=== PATIENT | female | born 1975 | race Two or more races ===

== ENCOUNTER 2017-06-28 02:53 | Inpatient (IN) ==
[2017-06-28 04:55] LABS: Apearance,Urine Slightly Hazy (Clear); Bacteria,Urine Occasional /HPF (Few); Bilirubin,Urine Negative (Negative); Blood, Urine Small mg/dL (Negative); Glucose,Urine (UA) Negative (Negative); Ketones,Urine Negative (Negative); Nitrite,Urine Negative (Negative); Protein,Urine Negative; RBC,Urine 16 /HPF (0-4); Squamous Epithelial Cell,Urine Occasional /HPF (0-10); Urine Color Straw (Yellow); Urine Specific Gravity 1.001 (1.001-1.035); Urine Urobilinogen < 2.0 EU/DL (0.2-1.0); WBC,Urine 15 /HPF (0-6)
[2017-06-28] MEDS ORDERED: LACTATED RINGERS 1,000 ML IV ONE (05:04)
[2017-06-28] MEDS ORDERED: FAMOTIDINE 20 MG/2 ML VIAL IV ONE (06:44)
[2017-06-28] MEDS ORDERED: CITRIC ACID/SODIUM CITRATE 30 ML UDCUP PO ONE (06:44)
[2017-06-28] MEDS ORDERED: LACTATED RINGERS 1,000 ML IV SCH ×3 (07:00→12:33)
[2017-06-28] MEDS ORDERED: OXYTOCIN/LR 20 UNIT/1,000 ML BAG IV ONE ×2 (07:09→12:33)
[2017-06-28 07:15] LABS: Basophils % 0.3 % (0.0-0.8); Eosinophils % 0.2 % (0.00-10.9); Hematocrit 36.6 VOL% (35.7-47.0); Hemoglobin 12.8 GM/DL (12.0-16.0); Immature Granulocytes % 0.7 %; Immature Granulocytes Absolute 0.06 #; Lymphocytes # 2.7 10*3/uL (1.4-4.0); Lymphocytes % 29.6 % (21.3-54.2); Mean Corpuscular Hemoglobin 31 PG (27-34); Mean Corpuscular Volume 88.8 FL (87-102); Mean Platelet Volume 10.3 FL (9.6-12.0); Monocytes # 0.4 10*3/uL (0.11-0.8); Monocytes % 4.5 % (1.7-12.7); Neutrophils # 5.8 10*3/uL (1.4-7.4); Neutrophils % 64.7 % (38.7-73.9); Platelet Count 311 T/CUMM (130-400); Red Blood Count 4.12 MC/CUMM (3.8-5.5); Red Cell Distribution Width 13.9 % (9.3-17.3)
[2017-06-28 07:29] LABS: Apearance,Urine CLEAR (Clear); Bacteria,Urine Occasional /HPF (Few); Bilirubin,Urine Negative (Negative); Blood, Urine Small mg/dL (Negative); Glucose,Urine (UA) Negative (Negative); Ketones,Urine Negative (Negative); Nitrite,Urine Negative (Negative); Protein,Urine Negative; RBC,Urine <1 /HPF (0-4); Squamous Epithelial Cell,Urine Occasional /HPF (0-10); Urine Color Straw (Yellow); Urine Specific Gravity 1.002 (1.001-1.035); Urine Urobilinogen < 2.0 EU/DL (0.2-1.0)
[2017-06-28] MEDS ORDERED: PHENYLEPHRINE 1 MG/10 ML SYRINGE IV ONE (07:36)
[2017-06-28] MEDS ORDERED: ONDANSETRON 4 MG/2 ML VIAL ONE (07:36)
--- NOTE | 2017-06-28 07:40 | OB/GYN History & Physical ---
History of Present Illness Chief complaint: Contractions History of present illness: Ms. Karen Millan is a 41 year old female Multiparous who presented this morning with contractions and cervical change. She was scheduled to come in this Saturday for her 4th section without tubal. ( plans IUD in the office). GDM, diet control (actually suspect Type 2 DM). Obesity. R/B/A to surgery reviewed. Pt verbalized understanding and is willing to proceed. Home Medications Medication Instructions Recorded Confirmed Type Vits #93/Iron Fum/FA 1 each PO DAILY MDD one tab 02/21/16 06/28/17 History [ Formula Tablet] Folic Acid Tab 1 mg PO DAILY 03/14/16 06/28/17 History Allergies Allergy/AdvReac Type Severity Reaction Status Date / Time No Known Allergies Allergy Verified 05/22/17 15:54 Medical,Surgical,& Family Hx - Medical History Neurology: No history of: Seizures Endocrine: No history of: Diabetes Mellitus (NIDDM) (Gestational DM) Reproductive: No history of: Ectopic , Complication (Ms. 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 - Constitutional Vitals: Vital Signs Temp Pulse Resp BP Pulse Ox 06/28/17 07:00 115 H 20 144/87 06/28/17 06:40 97.8 F 90 20 142/76 98 General appearance: mild distress, over weight - Head Head exam: Present: normal inspection, normocephalic - Eye Eye exam: Present: EOMI Pupils: Present: CANDI - Respiratory Respiratory exam: Present: clear to auscultation bilaterally - Cardiovascular Cardiovascular exam: Present: regular rate and rhythm - GI/Abdominal GI/Abdominal exam: Present: soft, other (regular contractions) Assessment and Plan (1) 38 weeks gestation of Status: Acute Current Visit: Yes (2) H/O section Status: Acute Assessment and plan: Currently in labor Plan repeat section Current Visit: Yes Results - Labs CBC & BMP: 06/28/17 07:10
[2017-06-28 07:49] LABS: Alanine Aminotransferase 19 U/L (13-56); Albumin 2.2 G/DL (3.4-5.0); Alkaline Phosphatase 188 U/L (45-117); Aspartate Amino Transferase 23 U/L (0-37); Bilirubin,Total < 0.39 MG/DL (0.2-1.0); Blood Urea Nitrogen 6 MG/DL (7-18); Calcium 8.3 MG/DL (8.5-10.1); Glucose 100 MG/DL (74-106); Osmolality,Calculated 276.4 MOS/KG (273-304); Potassium 3.9 MMOL/L (3.5-5.1); Sodium 140 MMOL/L (136-145); Total Protein 6.2 G/DL (6.4-8.3)
[2017-06-28] MEDS ORDERED: ceFAZolin 2,000 MG in PREMIX 1 EACH IV ONE (08:24)
[2017-06-28] MEDS ORDERED: MORPHINE 10 MG/10 ML VIAL ONE (09:07)
[2017-06-28] MEDS ORDERED: fentaNYL 100 MCG/2 ML VIAL ONE (09:07)
[2017-06-28] MEDS ORDERED: HYDROmorphone 2 MG/1 ML VIAL IV PRN (09:53)
--- NOTE | 2017-06-28 10:32 | Operative Note ---
Date of procedure: 06/28/17 Pre-op diagnosis: 38 plus weeks, h/o section x 3, desired repeat, labor Post-op diagnosis: same Procedure: REPEAT Patient taken to the OR where spinal anesthesia placed and adequate. Allen placed. Patient prepped and draped in sterile fashion. Incision was made thru previous midline scar. ONce fascia scored, pt noted to have no peritoneum to speak of and we were in the abdominal cavity. Incision extended bluntly easily. Mild adhesions superiorly of the omentum to the anterior abdominal wall. Jose retractor placed. Bladder flap created. Uterus entered sharply and the incision extended sharply. Membranes ruptured upon entry into the uterus. Clear fluid noted. delivered in cephalic presentation. Handed off to awaiting NICU team after cord clamped and cut. 30 seconds passed before cord was clamped and cut Placenta delivered. Uterus cleared of clots and debris] Uterus closed in 2 layers with Vicryl suture. Pelvis copiously irrigated. Sugicel placed over uterine incision. Fascia closed from superior to midline then Inferior to midline with 2looped PDS sutures. Skin closed with marcela. Sponge, lap and needle counts correct x2. Patient taken to recovery in stable condition. Anesthesia: regional Surgeon / Physician: Malu Rojo Certified Massage Therapist: Yulissa Hartman Estimated blood loss: other (400cc) Specimens: none sent Condition: stable Disposition: PACU Results - Labs CBC & BMP: 06/28/17 07:10 06/28/17 07:10 Discharge Plan - Discharge Medications No Action Vits #93/Iron Fum/FA [ Formula Tablet] 1 each PO DAILY MDD one tab Folic Acid Tab 1 mg PO DAILY - Follow Up or Referral - Forms/Instructions
[2017-06-28] MEDS ORDERED: RHO(D) IMMUNE GLOBULIN 300 MCG SYRINGE IM ONE (12:33)
[2017-06-28] MEDS ORDERED: GLUCAGON 1 MG VIAL IM PRN (12:33)
[2017-06-28] MEDS ORDERED: DEXTROSE 50% 25 GM/50 ML VIAL IV PRN (12:33)
[2017-06-28] MEDS ORDERED: ONDANSETRON 4 MG/2 ML VIAL IV PRN (12:33)
[2017-06-28] MEDS ORDERED: IBUPROFEN 800 MG TABLET PO PRN (12:33)
[2017-06-28] MEDS ORDERED: ACETAMINOPHEN 325 MG TABLET PO PRN (12:33)
[2017-06-28] MEDS: HYDROmorphone 2 MG/1 ML VIAL IV PRN ×2 (13:14→20:45)
--- NOTE | 2017-06-28 14:23 | Anesthesia Post-Op ---
Anesthesia Post OP - Post Ansesthetic Evaluation Patient seen in post op: Yes Resp: within normal limits CV: within normal limits Mental: within normal limits Temp: within normal limits [id number]: within normal limits Nausea and Vomiting: within normal limits Pain: within normal limits
[2017-06-28 20:54] LABS: Basophils % 0.3 % (0.0-0.8); Eosinophils % 0.2 % (0.00-10.9); Hemoglobin 11.6 GM/DL (12.0-16.0); Immature Granulocytes % 0.4 %; Immature Granulocytes Absolute 0.04 #; Lymphocytes # 2.1 10*3/uL (1.4-4.0); Lymphocytes % 19.1 % (21.3-54.2); Mean Corpuscular HGB Conc 34.1 GM/DL (32-36); Mean Corpuscular Hemoglobin 31 PG (27-34); Mean Corpuscular Volume 90.9 FL (87-102); Mean Platelet Volume 10.2 FL (9.6-12.0); Monocytes # 0.4 10*3/uL (0.11-0.8); Monocytes % 3.3 % (1.7-12.7); Neutrophils # 8.3 10*3/uL (1.4-7.4); Neutrophils % 76.7 % (38.7-73.9); Platelet Count 279 T/CUMM (130-400); Red Blood Count 3.74 MC/CUMM (3.8-5.5); Red Cell Distribution Width 14.3 % (9.3-17.3); White Blood Count 10.9 T/CUMM (4-12)
[2017-06-28] MEDS: DOCUSATE SODIUM 100 MG CAPSULE PO SCH (20:55)
[2017-06-29] MEDS: HYDROmorphone 2 MG/1 ML VIAL IV PRN ×2 (00:42→04:48)
[2017-06-29] MEDS: SIMETHICONE CHEW 80 MG TABLET PO PRN ×2 (04:48→22:12)
[2017-06-29 06:18] LABS: Basophils % 0.2 % (0.0-0.8); Hematocrit 35.5 VOL% (35.7-47.0); Hemoglobin 12.3 GM/DL (12.0-16.0); Immature Granulocytes % 0.6 %; Immature Granulocytes Absolute 0.08 #; Lymphocytes # 1.9 10*3/uL (1.4-4.0); Lymphocytes % 14.5 % (21.3-54.2); Mean Corpuscular HGB Conc 34.6 GM/DL (32-36); Mean Corpuscular Hemoglobin 32 PG (27-34); Mean Corpuscular Volume 90.8 FL (87-102); Mean Platelet Volume 10.7 FL (9.6-12.0); Monocytes # 0.3 10*3/uL (0.11-0.8); Monocytes % 2.4 % (1.7-12.7); Neutrophils % 82.3 % (38.7-73.9); Platelet Count 308 T/CUMM (130-400); Red Blood Count 3.91 MC/CUMM (3.8-5.5); Red Cell Distribution Width 14.7 % (9.3-17.3); White Blood Count 13.4 T/CUMM (4-12)
[2017-06-29] MEDS: DOCUSATE SODIUM 100 MG CAPSULE PO SCH ×2 (09:48→22:12)
[2017-06-29] MEDS: MULTIVITAMIN (PRENATAL) TABLET PO SCH (09:49)
--- NOTE | 2017-06-29 11:12 | OB/GYN Progress Note ---
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 Interval history: complaints of nausea, was improved, now nauseous with up to restroom Exam FILLING [employer] - Constitutional Vitals: Vital Signs Temp Pulse Resp BP Pulse Ox 06/29/17 08:00 97.9 F 115 H 18 144/83 06/29/17 03:50 98.9 F 105 H 18 131/79 96 06/29/17 03:00 18 06/29/17 02:10 16 06/29/17 00:05 98.9 F 100 H 18 133/82 96 06/28/17 23:00 18 06/28/17 19:50 98.8 F 108 H 20 142/86 96 06/28/17 15:40 99.5 F 118 H 18 134/71 98 06/28/17 14:40 96 H 18 129/88 99 06/28/17 13:40 105 H 18 125/79 99 06/28/17 13:10 103 H 18 129/80 99 06/28/17 12:40 98.0 F 110 H 18 129/78 98 General appearance: no acute distress - Head Head exam: Present: normocephalic - Eye Eye exam: Present: EOMI Pupils: Present: CANDI - GI/Abdominal GI/Abdominal exam: Present: other (incision intact) Results - Labs CBC & BMP: 06/29/17 05:49 06/28/17 07:10
[2017-06-29] MEDS: MAGNESIUM HYDROXIDE SUSP 30 ML UDCUP PO PRN ×2 (16:20→22:12)
[2017-06-29] MEDS ORDERED: BISACODYL 10 MG SUPP RECTAL PRN (17:20)
[2017-06-30] MEDS: BISACODYL 10 MG SUPP RECTAL SCH ×2 (04:54→18:53)
[2017-06-30] MEDS: SIMETHICONE CHEW 80 MG TABLET PO PRN (04:54)
[2017-06-30] MEDS ORDERED: PROMETHAZINE 25 MG/1 ML VIAL IM PRN (06:59)
[2017-06-30] MEDS ORDERED: KETOROLAC 30 MG/1 ML VIAL IV PRN (06:59)
[2017-06-30] MEDS: DEXTROSE 5% LACTATED RINGERS 1,000 ML IV SCH ×3 (07:00→22:00)
--- NOTE | 2017-06-30 08:05 | OB/GYN Progress Note ---
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 Flatus x 2 yesterday. explains that this happened after her last time. Advised them that she will be NPO for the next 24 hours. 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
[2017-06-30 08:24] LABS: Basophils % 0.2 % (0.0-0.8); Hematocrit 36.5 VOL% (35.7-47.0); Hemoglobin 12.9 GM/DL (12.0-16.0); Immature Granulocytes % 0.5 %; Immature Granulocytes Absolute 0.08 #; Lymphocytes # 2.4 10*3/uL (1.4-4.0); Lymphocytes % 16.3 % (21.3-54.2); Mean Corpuscular HGB Conc 35.3 GM/DL (32-36); Mean Corpuscular Hemoglobin 32 PG (27-34); Mean Corpuscular Volume 90.1 FL (87-102); Mean Platelet Volume 10.1 FL (9.6-12.0); Monocytes # 0.4 10*3/uL (0.11-0.8); Monocytes % 2.8 % (1.7-12.7); Neutrophils # 11.9 10*3/uL (1.4-7.4); Neutrophils % 80.2 % (38.7-73.9); Platelet Count 347 T/CUMM (130-400); Red Blood Count 4.05 MC/CUMM (3.8-5.5); Red Cell Distribution Width 14.6 % (9.3-17.3); White Blood Count 14.8 T/CUMM (4-12)
[2017-06-30 08:56] LABS: Alanine Aminotransferase 17 U/L (13-56); Alkaline Phosphatase 133 U/L (45-117); Aspartate Amino Transferase 23 U/L (0-37); Bilirubin,Total < 0.39 MG/DL (0.2-1.0); Blood Urea Nitrogen 6 MG/DL (7-18); Calcium 8.5 MG/DL (8.5-10.1); Glucose 168 MG/DL (74-106); Sodium 143 MMOL/L (136-145)
[2017-06-30] MEDS: MULTIVITAMIN (PRENATAL) TABLET PO SCH (09:17)
[2017-06-30] MEDS: DOCUSATE SODIUM 100 MG CAPSULE PO SCH ×2 (09:17→21:45)
[2017-06-30] MEDS: POTASSIUM CHLORIDE RIDER 10 MEQ in PREMIX 1 EACH IV PRN ×5 (15:36→19:39)
[2017-06-30] MEDS: INSULIN REGULAR 100 UNIT/ML SUBCUT SCH (18:53)
[2017-07-01] MEDS: INSULIN REGULAR 100 UNIT/ML SUBCUT SCH ×3 (05:35→17:21)
[2017-07-01] MEDS: BISACODYL 10 MG SUPP RECTAL SCH ×2 (05:37→17:21)
[2017-07-01] MEDS ORDERED: GLUCAGON 1 MG VIAL IM PRN (08:49)
[2017-07-01] MEDS ORDERED: DEXTROSE 50% 25 GM/50 ML VIAL IV PRN (08:49)
--- NOTE | 2017-07-01 08:57 | Discharge Summary ---
Hospital Course - Hospital Course Hospital Course: Pt with bowel issues post op. Made NPO on Day one and 2 secondary to distension. Yesterday, BM x 5 and feels much improved. BS improved and distension much better. Pt would like to go home today. Pt likely a Type 2 DM. Informed her of this at the beginning of . Will start Metformin and have educator meet with her to reinforce diet and inform of post testing. Diagnosis - Discharge Diagnosis (1) 38 weeks gestation of Status: Acute (2) H/O section Status: Acute Specialty Discharge - Follow Up or Referrals Follow up with: Malu Rojo MD [Physician] - Discharge Plan - Discharge Data Disposition: Disch To Home/Self Care Condition at Discharge: Stable Discharge Diet: diabetic diet, low fat, low cholesterol Activity: other (routine post op) Hygiene: may shower Weight Bearing at Discharge: full weight bearing Driving: not for (2 weeks) Contact your physician if you experience:: fever over 101, Difficulty voiding, Redness or swelling - Discharge Medications New HYDROcodone/ACETAMIN 5-325 [[place] 5-325] 2 tablet PO Q6H PRN #20 tablet PRN Reason: Pain Severe (8-10) Ibuprofen Tab [Motrin Tab] 800 mg PO Q8H PRN #30 tablet PRN Reason: Pain Severe (8-10) Docusate Sodium Cap [Colace Cap] 100 mg PO BID #30 capsule metFORMIN [Glucophage] 500 mg PO DAILY W/SUPPER #30 tablet No Action Vits #93/Iron Fum/FA [ Formula Tablet] 1 each PO DAILY MDD one tab Folic Acid Tab 1 mg PO DAILY - Follow Up or Referral Follow Up: Malu Rojo MD [Physician] - - Forms/Instructions Instructions: Section (DC), Perineal Care (DC), Bleeding (DC) Exam - Constitutional Vitals: Period Temp Pulse Resp BP Sys/Goel Pulse Ox Last 24 Hr 96.7 F-98.1 F 93-104 18-20 103-134/62-89 96-98 General appearance: no acute distress, over weight - Head Head exam: Present: normocephalic - Eye Eye exam: Present: EOMI Pupils: Present: CANDI - GI/Abdominal GI/Abdominal exam: Present: soft Discharge Results Labs on day of discharge: Labs from last 24 hours 07/01/17 07/01/17 06/30/17 06:06 00:31 22:36 Sodium Potassium 3.9 Chloride Carbon Dioxide Anion Gap BUN Creatinine GFR Calculation BUN/Creatinine Ratio Glucose POC Glucose 131 H 139 H Calculated Osmolality Calcium Total Bilirubin AST ALT Alkaline Phosphatase Total Protein Albumin Globulin Albumin/Globulin Ratio 06/30/17 06/30/17 06/30/17 17:44 11:18 08:15 Sodium 143 Potassium 3.0 L Chloride 104 Carbon Dioxide 32 Anion Gap 10.0 BUN 6 L Creatinine 0.50 L GFR Calculation 118 BUN/Creatinine Ratio 12.00 Glucose 168 H POC Glucose 140 H 144 H Calculated Osmolality 286.0 Calcium 8.5 Total Bilirubin < 0.39 AST 23 ALT 17 Alkaline Phosphatase 133 H Total Protein 6.0 L Albumin 2.0 L Globulin 4.0 H Albumin/Globulin Ratio 0.5 L DS: Provider Date of admission: 06/28/17 06:40 Primary care physician: . No PCP Attending physician on admission: Malu Rojo MD Consults: 06/28/17 12:33 Consult to Buzzsaw Operator [CONS] Routine Consult Buzzsaw Operator: Breast Feeding 07/01/17 08:35 Consult to [facility], Educator [CONS] Routine Reason for Security Systems Administrator: Diabetes Education Consult Comment: Pt needs NON DM teaching for BP testing. Starting Metformin. Discharging clinician: Malu Rojo MD
[2017-07-01] MEDS: DOCUSATE SODIUM 100 MG CAPSULE PO SCH (09:26)
[2017-07-01] MEDS: MULTIVITAMIN (PRENATAL) TABLET PO SCH (09:26)
[2017-07-01 13:18] VITALS: BP 126/78
[2017-07-01] MEDS ORDERED: INFLUENZA VIRUS VACCINE 0.5 ML SYRINGE IM ONE (16:10)
[2017-07-01] MEDS ORDERED: metFORMIN 500 MG TABLET PO SCH (17:00)
== END 2017-07-01 17:35 | disposition home or self-care (01) | DRG 765 ==
LOC: N.LDOUT 02:53 → EDSTATUS 02:53 → N.LD 02:56 → N.OB 12:36
PROVIDERS: ADMIT Obstetrics & Gynecology; ATTEND Obstetrics & Gynecology
PROC: LDCSECT (ICD-10-PCS; 2017-06-28 07:30)